=== PATIENT | female | born 1990 | race Caucasian/White ===

== ENCOUNTER 2017-11-10 08:05 | Day surgery (SDC) | payer OTHER ==
[~2017-11-10] VITALS: Ht 172.7 cm; Wt 104.3 kg
[~2017-11-10 08:05] MED LIST: MOTRIN800 MG PO; PERCOCET 5/31 TABLET PO; PRENATAL TABLE1 EAC3 PO; PROBIOTIC 15 B1 EACH PO; PROTONIX40 MG PO; VALTREX50 MG/ML PO
[2017-11-10 08:43] VITALS: BP 101/70
[2017-11-10] MEDS ORDERED: PERCOCET 5/31 TABLET PO (11:41)
[2017-11-10] MEDS ORDERED: COLACE100 MG PO (11:41)
[2017-11-10 12:45] VITALS: BP 117/69
[2017-11-10 14:13] VITALS: BP 111/67
[2017-11-10 15:16] VITALS: BP 119/68
== END 2017-11-10 15:15 | disposition home or self-care (01) ==
LOC: SDC 08:05
PROC: 0FT44ZZ Resection of Gallbladder, Percutaneous Endoscopic Approach (ICD-10-PCS; principal; 2017-11-10)
DX: K80.10 Calculus of gallbladder with chronic cholecystitis without obstruction (principal); M54.40 Lumbago with sciatica, unspecified side; F41.9 Anxiety disorder, unspecified
CPT/HCPCS: 86850; 86870; 86900; 86901; 86905; 86920; 88304; J0131; J0330; J1100; J1170; J1885; J2250; J2405; J2710; J3010; J3475; J7643; S0074